=== PATIENT | male | born 1960 | race Caucasian/White ===

== ENCOUNTER 2020-03-18 12:51 | Outpatient (CLI) | payer MEDICARE, MEDICAID, SELFPAY ==
--- NOTE | 2020-03-18 13:05 | XR_ITS ---
WS: [id number] LATERAL LUMBAR SPINE: 3 view. Lateral radiographs are performed in upright neutral, flexion and extension to the patient's toleranc e. HISTORY: LOW BACK PAIN COMPARISON: 06/06/2007 2 mm retrolisthesis of L4 does not change with flexion and extension. Similar alignment as compared t o the prior study. Anterior bridging osteophytes throughout the lumbar spine. Mild narrowing of the L 5-S1 disc space. Marked facet joint arthritis at L4-5 and L5-S1. XR/XR lumbar spine f/e only [id number] IMPRESSION: 1. No lumbar spine instability. 2. Facet joint arthritis and possible fusion from L3-4 to L5-S1. 3. Advanced spondylosis.
== END 2020-03-18 12:52 | disposition home or self-care (01) ==
LOC: RADWPI 12:57
PROVIDERS: Family Provider Family Medicine; PCP Family Medicine; Visit Provider Nurse Practitioner
DX: M54.5 Low back pain (principal); M47.816 Spondylosis without myelopathy or radiculopathy, lumbar region; M43.26 Fusion of spine, lumbar region; M43.27 Fusion of spine, lumbosacral region
CPT/HCPCS: 72120